=== PATIENT | female | born 1965 ===

== ENCOUNTER → 2017-07-03 | Outpatient (CLI) | payer SELFPAY | LOC: PREOP 06:27 | PROVIDERS: ATTEND Surgery | DX: Z01.818 Encounter for other preprocedural examination (principal); K62.89 Other specified diseases of anus and rectum; R14.0 Abdominal distension (gaseous); R15.9 Full incontinence of feces ==

== ENCOUNTER 2017-07-09 08:37 | Day surgery (SDC) | payer SELFPAY ==
[~2017-07-09] VITALS: Ht 152.4 cm; Wt 61.7 kg
[2017-07-09] MEDS ORDERED: NS IV 500 ML 500 ML IV ONE (09:45)
[2017-07-09] MEDS ORDERED: METF500T4 PO (09:51)
[2017-07-09] MEDS ORDERED: ATOR10TA66 PO (09:51)
[2017-07-09 10:04] VITALS: BP 161/79
[2017-07-09] MEDS ORDERED: NS IV 500 ML 500 ML ONE (10:19)
[2017-07-09] MEDS ORDERED: proPOfol 200 MG/20 ML (DIPRIVAN) VIAL IV ONE (11:47)
[2017-07-09] MEDS ORDERED: MIDAZOLAM 2 MG/2 ML (VERSED) VIAL ONE (11:48)
--- NOTE | 2017-07-09 11:50 | Progress Note-Pre Operative ---
Pre-Operative Progress Note H&P Reviewed The H&P was reviewed, patient examined and no changes noted. Date Seen by Provider: Jul 09, 2017 Time Seen by Provider: 11:50 Date H&P Reviewed: Jul 09, 2017 Time H&P Reviewed: 11:50 Pre-Operative Diagnosis: incontinence of feces, abdomianl distention, rectal discharge GREG ELIAS DO Jul 09, 2017 11:50
--- NOTE | 2017-07-09 12:18 | Progress Note-Post Operative ---
Post-Operative Progess Note Surgeon (s)/Coating Mixer Tender (s) Surgeon GREG ELIAS DO Coating Mixer Tender: na Pre-Operative Diagnosis incontinence of feces, abdomianl distention, rectal discharge Post-Operative Diagnosis normal colon Procedure & Operative Findings Date of Procedure 07/09/17 Procedure Performed/Findings colonoscopy Anesthesia Type per [facility] Estimated Blood Loss Estimated blood loss (mL): none Specimens/Packing Specimens Removed na GREG ELIAS DO Jul 09, 2017 12:18
--- NOTE | 2017-07-09 12:19 | Discharge Inst-Simple/Standard ---
Discharge Inst-Standard Patient Instructions/Follow Up Plan of Care/Instructions/FU: 2 weeks Gianna Activity as Tolerated: Yes Discharge Diet: Regular Diet GREG ELIAS DO Jul 09, 2017 12:19
[2017-07-09 12:30] VITALS: BP 120/80
[2017-07-09 12:50] VITALS: BP 116/72
--- NOTE | 2017-07-09 14:05 | OPERATIVE REPORT ---
DATE OF SERVICE: 07/09/2017 PREOPERATIVE DIAGNOSES: Incontinence of feces, abdominal distention, rectal discharge. POSTOPERATIVE DIAGNOSIS: Normal colon. PROCEDURE: Colonoscopy. SURGEON: Greg Katz DO ANESTHESIA: Per MDA. ESTIMATED BLOOD LOSS: None. COMPLICATIONS: None. INDICATIONS: The patient is a 51-year-old female who has been having incontinence of feces, abdominal distension and rectal discharge. She was explained the risks and benefits of the procedure and wished to proceed with the procedure. Consent was signed in the chart. DESCRIPTION OF PROCEDURE: The patient was taken to the endoscopy suite, placed in left lateral recumbent position. Timeout was performed. There were no palpable polyps, masses or ulcerations. The scope was inserted in the rectum and advanced all the way to the cecum with minimal difficulty. Prep was adequate. Scope was then slowly retracted back. There were no polyps, masses or ulcerations in the cecum, ascending, transverse, descending and sigmoid colon. No other pathology noted. Scope was in the rectum, where it was also retroflexed noting no other pathology. Scope was returned to its normal position, slowly withdrawn until completely removed. The patient tolerated procedure well without any complications. She was taken to the recovery room in stable condition. RECOMMENDATIONS: The patient with incontinent of feces. We discussed options, which would be consultation with colorectal surgeon for possible injections or surgical options. We will discuss this with her. Job ID: [id number] DocumentID: [id number] Dictated Date: 07/09/2017 12:22:25 Cdl Instructor Date: 07/09/2017 12:56:43 Dictated By: GREG KATZ DO
== END 2017-07-09 13:20 | disposition home or self-care (01) ==
LOC: ENDO 08:37
PROVIDERS: ATTEND Surgery
DX: R15.9 Full incontinence of feces (principal); K62.89 Other specified diseases of anus and rectum; R14.0 Abdominal distension (gaseous); E11.9 Type 2 diabetes mellitus without complications; E78.00 Pure hypercholesterolemia, unspecified; Z79.84 Long term (current) use of oral hypoglycemic drugs; Z79.899 Other long term (current) drug therapy
CPT/HCPCS: 82962; 84703